=== PATIENT | female | born 1985 | race American Indian/Alaskan Native ===

== ENCOUNTER 2018-01-18 10:14 | Emergency (ER) | payer BC, OTHER ==
[2018-01-18 10:24] VITALS: BP 116/73
[2018-01-18] MEDS ORDERED: ULTRAM PO ONE (11:18)
[2018-01-18] MEDS ORDERED: MOTRIN PO ONE (11:18)
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
== END 2018-01-18 12:52 | disposition home or self-care (01) ==
LOC: ED 10:14
DX: S70.02XA Contusion of left hip, initial encounter (principal); M25.462 Effusion, left knee; Z88.0 Allergy status to penicillin; V09.9XXA Pedestrian injured in unspecified transport accident, initial encounter; Y93.89 Activity, other specified; Y99.8 Other external cause status; Y92.488 Other paved roadways as the place of occurrence of the external cause